=== PATIENT | male | born 2000 | race Caucasian/White ===

== ENCOUNTER 2025-01-19 13:52 | Emergency (ER) | payer BC, SELFPAY ==
[2025-01-19 13:55] VITALS: BP 151/116
[2025-01-19 16:29] VITALS: BP 153/101
--- NOTE | 2025-01-19 19:04 | ED.GENMED ---
History of Present Illness
General
Chief Complaint: Back Pain
Source: patient
Exam Limitations: none
Time Seen by Provider: 01/19/25 16:13
Nursing documentation reviewed up to this point in time: agreed with
History of Present Illness
History of Present Illness:
Patient to ED [facility] complaint of low back pain. Pain started approx 1.5 weeks ago. No history of trauma. Denies fever/chills, recent illness. Reports pain radiates to bilateral thghs at times. No weakness in extremities.. No bowel or bladder
issues. No saddle paresthesia. Brought self to ED fore [facility].
Past History
Past History
ED Past Medical History: None
Review of Systems
Review of Systems
Allergies reviewed?: Yes
All Other Systems: ROS reviewed and negative except as documented in HPI and ROS
Constitutional: Reports no symptoms
EENT: Reports no symptoms
Respiratory: Reports no symptoms
Cardiac: Reports no symptoms
ABD/GI: Reports no symptoms
: Reports no symptoms
Musculoskeletal: Reports back pain (low back ppain)
Skin: Reports no symptoms
Neurological: Reports no symptoms
Psychiatric: Reports no symptoms
Phy Exam
General Physical Exam
General Presentation: well appearing and no apparent distress
General age: appears stated age
General Skin: warm and dry
General Habitus: normal
Gastrointestinal Exam
Gastrointestinal Exam: non tender and soft
Reflexes
Reflexes: +3: Left patellar and +3: Right patellar
Musculoskeletal Exam
Musculoskeletal Exam: full ROM and neuro vasc intact
Skin Exam
Skin Exam: normal color, warm/dry and no rash
Psychiatric Exam
Psychiatric Exam: normal mood/affect
Course
Orders/Labs/Results
Orders:
Orders
01/19/25 16:45
Lumbar Spine Complete, 4 View [CR Lumbar Spine Comp Min 4 Vw*] Urgent
Comment:
Reason For Exam: pain
01/19/25 18:58
Meloxicam [Mobic] 7.5 mg PO NOW STA
Prednisone [Deltasone] 40 mg PO NOW STA
Vital Signs
Initial and Last Documented VS:
Initial Vital Signs
Temp Pulse Resp BP Pulse Ox
98.0 F 104 18 151/116 98
01/19/25 13:55 01/19/25 13:55 01/19/25 13:55 01/19/25 13:55 01/19/25 13:55
Last Documented Vital Signs
Temp Pulse Resp BP Pulse Ox
98.2 F 86 16 153/101 99
01/19/25 16:29 01/19/25 16:29 01/19/25 16:29 01/19/25 16:29 01/19/25 16:29
*Radiology
Radiology exam reviewed: radiology read reviewed
*Pulse Oximetry
SaO2: 99
Oxygen Mode of Delivery: Room air
Patient hypoxic: no
*Critical Care Note
Total Time (30-74mins, 75-104mins- exclusive of procedures): Not Applicable
Update Note
Update Note:
Patient to ED with complaint of low back pain, occasional radiation to bilateral thighs. No bowel or baldder issues. No saddle paresthesia. No extremity weakness. No concern for cauda equina. Xray reviewed. No concnerning findngs. Willl treat
radicular symtpoms with prednisone taper. Try a course of Meloxicam for back pain. He i discharged home and recommend follow up with pain management. Given instructions on s/s to return to eD and he is agreeable to plan.
ED Attending Note
-
Portions of this chart may have been created with voice recognition software.� Occasional wrong word or��sound alike� substitutions may have occurred due to the inherent limitations of voice recognition software.
Discharge Plan
Departure
Patient Disposition: Home (Routine Discharge)
Date of Disposition: 01/19/25
Time of Disposition: 18:59
Patient with high blood pressure during this ER visit?: No
Condition: Good
Covid-19: Not Applicable
Discharge Problem:
Low back pain, Lumbar radiculopathy
Instructions: Low Back Pain (DC), Radiculopathy (DC)
Prescriptions:
New
prednisone 10 mg Tablet
See Rx Instructions .ROUTE .COMPLEX Qty: 30 0RF
Rx Instructions:
Take By Mouth:
40 mg daily x3 days, 30 mg daily x3 days,
20 mg daily x3 days, 10 mg daily x3 days.
meloxicam 7.5 mg tablet
7.5 mg PO DAILY Qty: 20 0RF
Referrals:
Anthony Rivera, DO [Non-Admitting Privileges, Orthopedics] - Next open appointment
NONE,* [Family Provider, Internal Medicine]
Interventions
Interventions:
*Risk Screen - Suicide Last Done: 01/19/25 13:55
*General Assessment Last Done: 01/19/25 13:55
*Neglect/Abuse Screening Last Done: 01/19/25 13:55
*ED COVID-19 Vaccine History Last Done: 01/19/25 13:55
ED-Musculoskeletal Assessment Last Done: 01/19/25 16:30
Discharge Date and Time
Print Language: ARMENIAN
Musculoskeletal Injury Exam
Musculoskeletal Injury Exam
Bilateral Lower Back:
Pain with Movement?: Moderate
Tender to palpation?: Moderate
Soft tissue swelling?: None
External deformity and angulation?: None
Joint effusion?: None
Contusion?: None
Hematoma-local bleeding into tissue?: None
Strain- Sprain- Tear (Connective tissue injury)?: Moderate
Crepitus with movement?: No
Joint instability?: No
Malalignment/deformity?: No
Range of motion: Limited
Distal skin color and temperature: normal-warm & good color
Capillary Refill: normal
Normal distal neurovascular exam?: Yes
[2025-01-19 19:09] VITALS: BP 161/99
== END 2025-01-19 19:13 | disposition home or self-care (01) ==
LOC: EMR 13:52
PROVIDERS: EMERGENCY PHYSICIAN Emergency Medicine
DX: M54.16 Radiculopathy, lumbar region (principal)
CPT/HCPCS: 99283; 72110

== ENCOUNTER 2025-05-31 08:11 | Emergency (ER) | payer BC, SELFPAY ==
[2025-05-31 08:15] VITALS: BP 152/104
[2025-05-31 09:07] VITALS: BMI 41.9
--- NOTE | 2025-05-31 09:37 | ED.GENMED ---
History of Present Illness
General
Chief Complaint: Back Pain
Source: patient
Time Seen by Provider: 05/31/25 09:27
History of Present Illness
History of Present Illness:
24-year-old male presenting to the ER for evaluation of continued left-sided back pain that has been ongoing for quite some time, recently had a steroid injection into the L5 area done last but without any relief of symptoms. Patient was
in contact with his orthopedist at [facility] who recommended he go to the [facility] urgent care where he was started on a prednisone taper and while he notes some slight improvement still having considerable pain radiating down his left leg. Patient
states no new injuries, fevers, chills, rigors. He saw his chiropractor yesterday but still had no improvement. He has been taking naproxen as well with minimal relief, was also provided with a muscle relaxant but states this only made him very
sleepy and he did not like this medication. Denies any fevers, chills, bowel or urinary incontinence, saddle anesthesias or any other concerns.
Past History
Past History
ED Past Medical History: None
ED Past Surgical History: Urological
Social History
Tobacco: Non-smoker
Alcohol: None
Drug: None
Personal: Single
Living: with family
Review of Systems
Review of Systems
All Other Systems: ROS reviewed and negative except as documented in HPI and ROS
Phy Exam
Physical Exam
Physical Exam:
GENERAL: Alert , in no apparent distress but does appear uncomfortable with movements
EYE: clear conjunctiva b/l
NECK: Supple
ENT: o/p clr, mmm.
BACK: Limited range of motion secondary to pain, generalized paralumbar tenderness on the left, no midline bony tenderness, no rashes
NEUROLOGICAL: Alert and oriented, no focal neuro deficits. Patellar deep tendon reflexes intact and equal bilaterally, sensation grossly intact and equal to light touch bilateral lower extremities
SKIN: Warm and dry, skin intact.
MUSCULOSKELETAL: No edema, well perfused. EHL intact bilaterally
PSYCH: Normal and appropriate interaction.
Scores
Heart Failure Risk
Heart Failure Risk Score: Not Applicable
Heart Score for Chest Pain Patients
STEMI patient?: Not applicable
Withdrawal Assessment of Alcohol
Withdrawal Assessment Completed?: Not applicable
Course
Vital Signs
Initial and Last Documented VS:
Initial Vital Signs
Temp Pulse Resp BP Pulse Ox
97.8 F 89 18 152/104 97
05/31/25 08:15 05/31/25 08:15 05/31/25 08:15 05/31/25 08:15 05/31/25 08:15
Last Documented Vital Signs
Temp Pulse Resp BP Pulse Ox
97.8 F 89 18 152/104 97
05/31/25 08:15 05/31/25 08:15 05/31/25 08:15 05/31/25 08:15 05/31/25 09:37
MDM/Problems Addressed
Differential Diagnosis Includes:
Lumbar Radiculopathy
Disc Herniation
Nerve Impingement
Spinal Stenosis
Cauda Equina
Less concern for infectious etiology
Epidural hematoma/abscess
Renal/Ureteral colic
MDM/Problems Addressed:
24-year-old male presenting to the ER for evaluation of continued left-sided lumbar pain/radicular symptoms. Had epidural done just over 1 week ago, no relief since. Currently on a steroid taper and was provided with a muscle relaxer by Joao
but minimal relief with this. Overall doubt any emergent pathologies and discussed with the patient that further treatments in the ER are quite limited. He has already had MRI imaging. Will trial gabapentin for additional pain relief. I
encouraged the patient to contact his orthopedist on Monday when the office reopens and that they will need to figure out a more long-term plan for his pain management. We discussed return precautions to the ER.
*Pulse Oximetry
SaO2: 97
Oxygen Mode of Delivery: Room air
Patient hypoxic: no
*Critical Care Note
Total Time (30-74mins, 75-104mins- exclusive of procedures): Not Applicable
Data Reviewed
Review of Other/Old Records Reveals: Radiology Studies
Comment
Comment:
XR lumbar spine from 01/19/25
IMPRESSION:
1. Moderate discogenic degenerative disease and 7 mm retrolisthesis at L5/S1.
2. Mild discogenic degenerative disease at L4/L5.
3. Severe straightening of the lumbar spine.
ED Attending Note
-
Portions of this chart may have been created with voice recognition software.� Occasional wrong word or��sound alike� substitutions may have occurred due to the inherent limitations of voice recognition software.
Discharge Plan
Departure
Patient Disposition: Home (Routine Discharge)
Date of Disposition: 05/31/25
Time of Disposition: 09:37
Patient with high blood pressure during this ER visit?: Yes
Discharge Problem:
Left lumbar radiculopathy
Instructions: Radiculopathy (DC)
Prescriptions:
New
gabapentin 300 mg capsule
300 mg PO BID Qty: 15 0RF
No Action
prednisone 10 mg Tablet
See Rx Instructions .ROUTE .COMPLEX Qty: 30 0RF
Rx Instructions:
Take By Mouth:
40 mg daily x3 days, 30 mg daily x3 days,
20 mg daily x3 days, 10 mg daily x3 days.
meloxicam 7.5 mg tablet
7.5 mg PO DAILY Qty: 20 0RF
Referrals:
NONE,* [Family Provider, Internal Medicine]
Stand Alone Forms: Return to Work
Interventions
Interventions:
*Risk Screen - Suicide Last Done: 05/31/25 08:15
*General Assessment Last Done: 05/31/25 08:15
*Neglect/Abuse Screening Last Done: 05/31/25 08:15
*ED COVID-19 Vaccine History Last Done: 05/31/25 08:15
*ED Influenza Vaccine History Last Done: 05/31/25 08:15
*Nursing Disposition Last Done: 05/31/25 10:13
ED-Musculoskeletal Assessment Last Done: 05/31/25 09:30
Discharge Date and Time
Discharge Date/Time: 05/31/25 09:45
Print Language: SINHALA
== END 2025-05-31 09:45 | disposition home or self-care (01) ==
LOC: EMR 08:11
PROVIDERS: EMERGENCY PHYSICIAN Emergency Medicine
DX: M54.16 Radiculopathy, lumbar region (principal)
CPT/HCPCS: 99283